=== PATIENT | female | born 1950 | race Two or more races ===

== ENCOUNTER 2018-09-30 05:53 | Emergency (ER) | payer MEDICARE, OTHER ==
[~2018-09-30] VITALS: Ht 157.5 cm; Wt 78.0 kg
[2018-09-30 06:15] VITALS: BP 158/75
[2018-09-30] MEDS ORDERED: PROMETHAZINE HCL 25 MG/ML 1ML IM ONE (06:45)
[2018-09-30] MEDS ORDERED: MEPERIDINE HCL (50 MG/ML) 1 ML VIAL IM ONE (06:45)
== END 2018-09-30 07:39 | disposition home or self-care (01) ==
LOC: ER 05:58
DX: M54.5 Low back pain (principal); M54.2 Cervicalgia; G89.29 Other chronic pain; E11.9 Type 2 diabetes mellitus without complications; E78.5 Hyperlipidemia, unspecified; I10 Essential (primary) hypertension
CPT/HCPCS: 82962; 93005; 96372; 99283; J2175; J2550

== ENCOUNTER 2023-07-23 20:54 | Emergency (ER) | payer MEDICARE, OTHER ==
[~2023-07-23] VITALS: Ht 157.5 cm; Wt 76.4 kg
[2023-07-23 21:47] LABS: Basophils # (auto) 0.1 10 ^3/uL (0-0.2); Basophils % (auto) 0.6 % (0.0-2.0); Eosinophils # (auto) 0.2 10 ^3/uL (0-0.8); Eosinophils % (auto) 2.1 % (0.0-7.0); Hematocrit 39.4 % (36.0-46.0); Hemoglobin 13.8 g/dL (12.2-16.2); Lymphocytes # (auto) 2.9 10 ^3/uL (0.4-5.4); Lymphocytes % (auto) 36.8 % (10.0-50.0); Mean Corpuscular Hemoglobin 32.9 pg (28.0-32.0); Monocytes # (auto) 0.6 10 ^3/uL (0-1.3); Monocytes % (auto) 8.1 % (0.0-12.0); Neutrophils # (auto) 4.2 10 ^3/uL (1.6-8.6); Neutrophils % (auto) 52.4 % (37.0-80.0); Red Blood Cells 4.19 10^6/uL (4.0-5.20)
[2023-07-23 22:01] LABS: Alanine Aminotransferase 23 U/L (7-40); Albumin 4.5 g/dL (3.2-4.8); Alkaline Phosphatase 52 U/L (46-116); Anion Gap 7 (5-15); Aspartate Aminotransferase 19 U/L (13-40); BUN/Creatinine Ratio 9.8 (10.0-20.0); Blood Urea Nitrogen 8 mg/dL (9-23); Calcium 9.8 mg/dL (8.7-10.4); Carbon Dioxide 26 mmol/L (20-30); Chloride 108 mmol/L (98-107); Glucose 96 mg/dL (74-106); Sodium 141 mmol/L (136-145)
[2023-07-23 22:02] LABS: Bilirubin, Total 0.7 mg/dL (0.2-1.0); Total Protein 6.8 g/dL (5.7-8.2)
[2023-07-23 22:24] LABS: Magnesium 0.7 mg/dL (1.6-2.6)
[2023-07-24 00:47] VITALS: PULSE 53; RESP 14; TEMP 98.1; O2SAT 96
[2023-07-24] MEDS: MAGNESIUM SULFATE 1GM/100ML 100 ML IV SCH ×2 (01:26→01:40)
[2023-07-24 02:00] VITALS: BP 103/54; PULSE 47; RESP 14; O2SAT 97
== END 2023-07-24 02:18 | disposition home or self-care (01) ==
LOC: ER 20:56
DX: I10 Essential (primary) hypertension (principal); E83.42 Hypomagnesemia; E11.9 Type 2 diabetes mellitus without complications; E78.5 Hyperlipidemia, unspecified
CPT/HCPCS: 36415; 71045; 80053; 82962; 83735; 83880; 84484; 85025; 93005; 96365; 99285; J3475

== ENCOUNTER 2023-10-18 05:09 | Emergency (ER) | payer OTHER, MEDICAID ==
[~2023-10-18] VITALS: Ht 157.5 cm; Wt 69.3 kg
[~2023-10-18 05:09] MED LIST: AML5T PO; ATOR10TA PO; BACL20TA PO; CHOL20007 OR; FLUT1AER3 IN; GABA-1250 PO; LOSA50TA46 PO; METF-490 PO; OMEP20TA PO; POTA-220 PO
[2023-10-18 05:25] VITALS: BP 151/78; PULSE 73; RESP 18; TEMP 98.2; O2SAT 98
[2023-10-18] MEDS ORDERED: HYDROcodone-ACET 5/325MG TAB PO ONE (07:00)
[2023-10-18] MEDS ORDERED: TRAM50TA2 PO (07:11)
== END 2023-10-18 07:20 | disposition home or self-care (01) ==
LOC: ER 05:09
DX: M75.102 Unspecified rotator cuff tear or rupture of left shoulder, not specified as traumatic (principal); I10 Essential (primary) hypertension; E11.9 Type 2 diabetes mellitus without complications; E78.5 Hyperlipidemia, unspecified; Z79.899 Other long term (current) drug therapy

== ENCOUNTER 2023-10-19 23:28 | Emergency (ER) | payer OTHER, MEDICAID ==
[~2023-10-19 23:28] MED LIST changes: +TRAM50TA2 PO
[2023-10-21] MEDS ORDERED: ONDANSETRON HCL 4 MG/2 ML VIAL ONE (08:20)
[2023-10-21] MEDS ORDERED: PROPOFOL 10 MG/ML 20 ML IV ONE (08:20)
[2023-10-21] MEDS ORDERED: NEOSTIGMINE 1 MG/ML INJ (10mg/10ML VIAL) ONE (08:20)
[2023-10-21] MEDS ORDERED: DexAMETHasone SOD PHOS 10MG/1ML VIAL INJ ONE (08:20)
[2023-10-21] MEDS ORDERED: SODIUM CHLORIDE LOCK 10 ML ONE (08:20)
[2023-10-21] MEDS ORDERED: MIDAZOLAM HCL 2MG/2ML 2ml VIAL (1mg/ml) ONE (08:20)
[2023-10-21] MEDS ORDERED: ROCURONIUM 10MG/ML 10ML VIAL IV ONE (08:20)
[2023-10-21] MEDS ORDERED: DexAMETHasone SOD PHOS 4 MG/1ML SDV INJ ONE (08:59)
== END 2023-10-19 23:52 | disposition left against medical advice (07) ==
LOC: ER 23:28
DX: I10 Essential (primary) hypertension (principal); Z53.21 Procedure and treatment not carried out due to patient leaving prior to being seen by health care provider

== ENCOUNTER 2023-10-20 13:28 | Inpatient (IN) | payer OTHER, MEDICAID ==
[~2023-10-20] VITALS: Ht 152.4 cm; Wt 66.2 kg
[2023-10-20] MEDS ORDERED: ONDANSETRON HCL 4 MG/2 ML VIAL IM ONE (14:15)
[2023-10-20 14:17] LABS: Basophils # (auto) 0 10 ^3/uL (0-0.2); Basophils % (auto) 0.5 % (0.0-2.0); Eosinophils # (auto) 0 10 ^3/uL (0-0.8); Hematocrit 41.8 % (36.0-46.0); Hemoglobin 14.2 g/dL (12.2-16.2); Lymphocytes # (auto) 1.4 10 ^3/uL (0.4-5.4); Lymphocytes % (auto) 15.4 % (10.0-50.0); Mean Corpuscular Hgb Conc. 33.9 g/dL (32.0-36.0); Mean Corpuscular Volume 94.4 fL (80.0-100.0); Monocytes # (auto) 0.5 10 ^3/uL (0-1.3); Monocytes % (auto) 5.8 % (0.0-12.0); Neutrophils # (auto) 6.9 10 ^3/uL (1.6-8.6); Neutrophils % (auto) 78.3 % (37.0-80.0); Red Blood Cells 4.42 10^6/uL (4.0-5.20); Red Cell Distribution Width 13.7 % (11.8-14.3); White Blood Cell 8.9 10^3/uL (4.4-10.8)
[2023-10-20 14:37] LABS: Alanine Aminotransferase 22 U/L (7-40); Albumin 4.7 g/dL (3.2-4.8); Alkaline Phosphatase 49 U/L (46-116); Anion Gap 20 (5-15); Aspartate Aminotransferase 22 U/L (13-40); BUN/Creatinine Ratio 11.1 (10.0-20.0); Blood Urea Nitrogen 8 mg/dL (9-23); Calcium 9.4 mg/dL (8.5-10.1); Carbon Dioxide 17 mmol/L (20-30); Chloride 100 mmol/L (98-107); Glucose 177 mg/dL (74-106); Potassium 3.3 mmol/L (3.5-5.1); Sodium 137 mmol/L (136-145)
[2023-10-20 14:38] LABS: Bilirubin, Total 1.6 mg/dL (0.2-1.0)
[2023-10-20] MEDS ORDERED: cloNIDine 0.2 mg/24hr 7DAY PATCH TD ONE (19:15)
[2023-10-20] MEDS ORDERED: cloNIDine HCL 0.1 MG TAB PO ONE ×2 (19:30→20:30)
[2023-10-20 19:35] VITALS: PULSE 137; RESP 16; O2SAT 100
[2023-10-20] MEDS ORDERED: ACETAMINOPHEN 325 MG TAB PO ONE ×2 (20:30)
[2023-10-20] MEDS ORDERED: ONDANSETRON HCL 4 MG/2 ML VIAL IV ONE (20:30)
[2023-10-20] MEDS ORDERED: SOD CHL 0.45% 1,000 ML IV ONE (20:30)
[2023-10-20 23:00] VITALS: PULSE 120; RESP 22; O2SAT 99
[2023-10-20] MEDS ORDERED: LABETALOL HCL 5 MG/ML 4ML SYRINGE IV ONE ×2 (23:45→23:46)
[2023-10-21] MEDS ORDERED: SODIUM CHLORIDE 0.9% 1,000 ML IV ONE (01:00)
[2023-10-21] MEDS: POTASSIUM CHL 20MEQ/100ML 100 ML IV SCH ×2 (02:50→04:41)
[2023-10-21] MEDS: SODIUM CHLORIDE 0.9% 1,000 ML IV SCH ×3 (02:50→18:37)
[2023-10-21] MEDS ORDERED: hydrALAZINE HCL 20 MG/ML VL IV PRN ×2 (03:00→11:45)
[2023-10-21] MEDS ORDERED: DEXTROSE (50%) 50ML SYRG IV PRN (03:15)
[2023-10-21] MEDS ORDERED: HYDROmorphone HCL 2 MG/ML VL/or syr IV PRN (03:15)
[2023-10-21 04:59] LABS: Basophils # (auto) 0 10 ^3/uL (0-0.2); Basophils % (auto) 0.2 % (0.0-2.0); Eosinophils # (auto) 0 10 ^3/uL (0-0.8); Hematocrit 40.1 % (36.0-46.0); Hemoglobin 13.9 g/dL (12.2-16.2); Lymphocytes # (auto) 1.2 10 ^3/uL (0.4-5.4); Lymphocytes % (auto) 10.7 % (10.0-50.0); Mean Corpuscular Hemoglobin 32.1 pg (28.0-32.0); Mean Corpuscular Hgb Conc. 34.7 g/dL (32.0-36.0); Mean Corpuscular Volume 92.5 fL (80.0-100.0); Monocytes # (auto) 0.6 10 ^3/uL (0-1.3); Monocytes % (auto) 5.8 % (0.0-12.0); Neutrophils # (auto) 9.2 10 ^3/uL (1.6-8.6); Neutrophils % (auto) 83.3 % (37.0-80.0); Red Blood Cells 4.34 10^6/uL (4.0-5.20); White Blood Cell 11.1 10^3/uL (4.4-10.8)
[2023-10-21] MEDS ORDERED: MORPHINE SULFATE INJ 2 MG/ml SYRG IV PRN (05:00)
[2023-10-21] MEDS ORDERED: NITROGLYCERIN 0.4 MG SL TAB SL PRN (05:00)
[2023-10-21 05:23] LABS: Alanine Aminotransferase 19 U/L (7-40); Albumin 4.4 g/dL (3.2-4.8); Alkaline Phosphatase 45 U/L (46-116); Anion Gap 19 (5-15); Aspartate Aminotransferase 22 U/L (13-40); BUN/Creatinine Ratio 13.6 (10.0-20.0); Blood Urea Nitrogen 11 mg/dL (9-23); Calcium 8.5 mg/dL (8.7-10.4); Carbon Dioxide 17 mmol/L (20-30); Chloride 102 mmol/L (98-107); Glucose 182 mg/dL (74-106); Potassium 2.8 mmol/L (3.5-5.1); Sodium 138 mmol/L (136-145)
[2023-10-21 05:24] LABS: Bilirubin, Total 1.3 mg/dL (0.2-1.0); Total Protein 6.9 g/dL (5.7-8.2)
[2023-10-21] MEDS: ACCU-CHEK COMFORT CURVE STRIP VI SCH ×3 (05:31→17:56)
[2023-10-21] MEDS: InsuLIN REG 1unit/0.01ml Soln (100units/ml) SC SCH ×3 (05:31→17:56)
[2023-10-21 06:55] LABS: Urine Bacteria FEW /hpf (None Seen); Urine Blood 2+ /uL (Negative); Urine Clarity HAZY (Clear); Urine Protein, UAD 3+ (Negative); Urine Specific Gravity 1.011 (1.001-1.035); Urine Urobilinogen Normal (Negative); Urine WBC 2 /hpf (0 - 5)
[2023-10-21 07:04] LABS: Urine Color Straw (Yellow)
[2023-10-21] MEDS ORDERED: fentaNYL CITRATE 100 MCG/2 ML VL ONE (08:22)
[2023-10-21] MEDS ORDERED: MEPERIDINE HCL (25 MG/ML) 1ML VIAL ONE (08:22)
[2023-10-21] MEDS ORDERED: fentaNYL CITRATE 5 ML ONE (08:22)
[2023-10-21] MEDS ORDERED: SODIUM CHLORIDE LOCK 10 ML ONE (09:01)
[2023-10-21] MEDS ORDERED: POTASSIUM CHLORIDE 80 MEQ, LIDOCAINE 1% (LOCAL ANESTH.) 6 ML in SODIUM CHL 0.9% 500 ML IV ONE (09:45)
[2023-10-21 09:59] LABS: INR 1.23 (0.9-1.15)
[2023-10-21 10:51] VITALS: PULSE 89; RESP 20; O2SAT 99
[2023-10-21] MEDS: ONDANSETRON HCL 4 MG/2 ML VIAL IV PRN ×2 (11:16→18:44)
[2023-10-21] MEDS ORDERED: LACTATED RINGER'S 1,000 ML IV ONE (11:45)
[2023-10-21 12:52] VITALS: BP 145/68; PULSE 82; RESP 16; TEMP 98.8; O2SAT 100
[2023-10-21 14:57] LABS: Chloride 105 mmol/L (98-107); Potassium 2.9 mmol/L (3.5-5.1); Sodium 139 mmol/L (136-145)
[2023-10-21 14:58] LABS: Anion Gap 11 (5-15); Carbon Dioxide 23 mmol/L (20-30)
[2023-10-21 14:59] LABS: Calcium 8.3 mg/dL (8.5-10.1)
[2023-10-21 15:03] LABS: BUN/Creatinine Ratio 14.3 (10.0-20.0); Blood Urea Nitrogen 9 mg/dL (9-23); Glucose 106 mg/dL (74-106)
[2023-10-21] MEDS ORDERED: MAALOX PLUS or MAALOX 30 ML PO PRN (15:45)
[2023-10-21 16:35] VITALS: BP 136/70; PULSE 78; RESP 16; TEMP 98.7; O2SAT 98
[2023-10-21 19:45] VITALS: PULSE 78; RESP 18; O2SAT 98
[2023-10-21 22:00] VITALS: BP 146/78; PULSE 81; RESP 18; TEMP 98.4; O2SAT 98
[2023-10-22] MEDS: ACCU-CHEK COMFORT CURVE STRIP VI SCH ×4 (00:18→18:39)
[2023-10-22] MEDS: SODIUM CHLORIDE 0.9% 1,000 ML IV SCH ×3 (02:00→18:00)
[2023-10-22 05:00] VITALS: BP 138/82; PULSE 62; RESP 17; TEMP 98.1; O2SAT 94
[2023-10-22] MEDS: InsuLIN REG 1unit/0.01ml Soln (100units/ml) SC SCH ×4 (05:32→18:00)
[2023-10-22 06:16] LABS: Basophils # (auto) 0 10 ^3/uL (0-0.2); Basophils % (auto) 0.1 % (0.0-2.0); Eosinophils # (auto) 0 10 ^3/uL (0-0.8); Eosinophils % (auto) 0.3 % (0.0-7.0); Hematocrit 35.5 % (36.0-46.0); Hemoglobin 12.1 g/dL (12.2-16.2); Lymphocytes # (auto) 2.3 10 ^3/uL (0.4-5.4); Lymphocytes % (auto) 22.6 % (10.0-50.0); Mean Corpuscular Hemoglobin 32.4 pg (28.0-32.0); Mean Corpuscular Hgb Conc. 34.2 g/dL (32.0-36.0); Mean Corpuscular Volume 94.8 fL (80.0-100.0); Monocytes # (auto) 0.8 10 ^3/uL (0-1.3); Monocytes % (auto) 7.8 % (0.0-12.0); Neutrophils # (auto) 7.1 10 ^3/uL (1.6-8.6); Neutrophils % (auto) 69.2 % (37.0-80.0); Nucleated Red Blood Cells % 0.1 %; Red Blood Cells 3.74 10^6/uL (4.0-5.20); White Blood Cell 10.3 10^3/uL (4.4-10.8)
[2023-10-22 08:00] VITALS: PULSE 62
[2023-10-22 09:00] VITALS: BP 151/77; PULSE 67; RESP 18; TEMP 98.2; O2SAT 99
[2023-10-22] MEDS: LOSARTAN POTASSIUM 50 MG TAB PO SCH ×2 (10:00→10:50)
[2023-10-22 11:23] LABS: Alanine Aminotransferase 23 U/L (7-40); Albumin 3.7 g/dL (3.2-4.8); Alkaline Phosphatase 36 U/L (46-116); Anion Gap 12 (5-15); Aspartate Aminotransferase 40 U/L (13-40); Blood Urea Nitrogen 6 mg/dL (9-23); Calcium 8.3 mg/dL (8.5-10.1); Carbon Dioxide 22 mmol/L (20-30); Chloride 108 mmol/L (98-107); Glucose 104 mg/dL (74-106); Potassium 2.8 mmol/L (3.5-5.1); Sodium 142 mmol/L (136-145)
[2023-10-22 11:24] LABS: Bilirubin, Total 1.2 mg/dL (0.2-1.0); Total Protein 5.8 g/dL (5.7-8.2)
[2023-10-22] MEDS ORDERED: MAGNESIUM OXIDE 400 MG TAB PO ONE ×2 (12:30→16:15)
[2023-10-22 13:00] VITALS: BP 166/81; PULSE 68; RESP 16; TEMP 97.6; O2SAT 95
[2023-10-22] MEDS ORDERED: POTASSIUM CHL 20 Meq TABLET PO ONE (13:00)
[2023-10-22] MEDS: POTASSIUM CHL 20MEQ/100ML 100 ML IV SCH ×2 (13:20→15:51)
[2023-10-22] MEDS ORDERED: GABAPENTIN 300 MG CAP PO SCH (14:00)
[2023-10-22] MEDS ORDERED: amLODIPine BESYLATE 5 MG TAB PO ONE (14:15)
[2023-10-22] MEDS ORDERED: MAGNESIUM SULFATE 1GM/100ML 100 ML IV SCH (16:10)
[2023-10-22 17:00] VITALS: BP 155/87; PULSE 80; RESP 18; TEMP 97.7; O2SAT 98
[2023-10-22] MEDS ORDERED: MAGN400T40 PO (17:19)
[2023-10-22] MEDS: MAGNESIUM SULFATE 1GM/100ML 100 ML IV SCH ×2 (17:45→18:20)
[2023-10-22 20:00] VITALS: PULSE 82; RESP 16
[2023-10-23] MEDS ORDERED: amLODIPine BESYLATE 5 MG TAB PO SCH (10:00)
== END 2023-10-22 20:55 | disposition home or self-care (01) | DRG 641 ==
LOC: ER 13:28 → EDUNIT# 13:28 → EDBD 13:28 → TELE 10-21 04:46 → TELE-CENTR 10-21 11:29
PROVIDERS: ADMIT Hospitalist; ATTEND Student in an Organized Health Care Education/Training Program
DX: E86.0 Dehydration (principal); I10 Essential (primary) hypertension; E11.9 Type 2 diabetes mellitus without complications; E78.5 Hyperlipidemia, unspecified; T50.905A Adverse effect of unspecified drugs, medicaments and biological substances, initial encounter; E87.6 Hypokalemia; R07.9 Chest pain, unspecified; M19.011 Primary osteoarthritis, right shoulder; M19.012 Primary osteoarthritis, left shoulder; Y92.89 Other specified places as the place of occurrence of the external cause; Z87.891 Personal history of nicotine dependence
CPT/HCPCS: 36415; 71045; 73030; 74176; 78226; 80048; 80053; 81001; 82010; 82962; 83036; 83690; 83735; 83880; 84443; 84484; 85025; 85610; 93005; 93306; G0378; J1815; J2001; J2405; J3480; J3490